=== PATIENT | male | born 1990 ===

== ENCOUNTER 2024-12-09 07:35 | Emergency (ER) | payer OTHER ==
[~2024-12-09] VITALS: Ht 175.3 cm; Wt 100.0 kg
--- NOTE | 2024-12-09 07:59 | ED.PDOC ---
GI ASSESSMENT HPI Comments 34-year-old male with PMHx Renal Stones presents with a chief complaint of abdominal pain x 0530 onset this morning with associated nausea and vomiting. Patient states that his pain is localized to his RLQ, nonradiating, describes as sharp, and rates his pain a 10/10. Patient reports that his pain began spontaneously and denies any injuries or trauma prior to onset of symptoms. Patient mentions that he has had kidney stones in the past, but this pain is worse than the kidney stone pain. Patient denies any blood in his emesis. Chief Complaint: Abdominal Pain Time Seen by MD: 07:54 Primary Care Provider: KAUR Zhang Notes: Medications, Allergies Allergies: Coded Allergies: NO KNOWN ALLERGIES (Unverified , 12/09/24) Information Source: Patient Mode of Arrival: Wheelchair Timing: Hours Duration: Since onset Prehospital treatment: None Quality: Sharp Vomitus: Bilious Stool: Normal Severity: Moderate Recent: None Recent Hx of: None Pain Location: RLQ Associated sign and symptoms: Nausea, Vomiting, Abdominal Pain Past Medical History PAST MEDICAL HISTORY: GERD, HTN, Kidney Stones Surgical History: Denies all surgeries Family History Family History: Reviewed,noncontributory to illness Social History Smoker: Non-Smoker Alcohol: Denies ETOH Use Drugs: Denies Drug Use Lives In: Home Constitutional: denies: chills, diaphoresis, fatigue, fever, malaise, sweats, weakness, others EENTM: denies: blurred vision, double vision, ear bleeding, ear discharge, ear drainage, ear pain, ear ringing, eye pain, eye redness, hearing loss, mouth pain, mouth swelling, nasal discharge, nose bleeding, nose congestion, nose pain, photophobia, tearing, throat pain, throat swelling, voice changes, others Respiratory: denies: cough, hemoptysis, orthopnea, SOB at rest, shortness of breath, SOB with excertion, stridor, wheezing, others Cardiovascular: denies: chest pain, dizzy spells, diaphoresis, Dyspnea on exertion, edema, irregular heart beat, left arm pain, lightheadedness, palpitations, PND, syncope, others Gastrointestinal: reports: abdominal pain, nausea, vomiting; denies: abdomen distended, blood streaked bowels, constipated, diarrhea, dysphagia, difficulty swallowing, hematemesis, melena, poor appetite, poor fluid intake, rectal bleeding, rectal pain, others Genitourinary: denies: burning, dysuria, flank pain, frequency, hematuria, i ncontinence, penile discharge, penile sore, pain, testicle pain, testicle swelling, urgency, others Neurological: denies: dizziness, fainting, headache, left sided numbness, left sided weakness, numbness, paresthesia, pre-existing deficit, right sided numbness, right sided weakness, seizure, speech problems, tingling, tremors, weakness, others Musculoskeletal: denies: back pain, gout, joint pain, joint swelling, muscle pain, muscle stiffness, neck pain, others Integumetry: denies: bruises, change in color, change in hair/nails, dryness, laceration, lesions, lumps, rash, wounds, others Allergic/Immunocompromised: denies: Difficulty Healing, Frequent Infections, Hives, Itching, others Hematologic/Lymphatic: denies: anemia, blood clots, easy bleeding, easy bruising, swollen glands, others Endocrine: denies: excessive hunger, excessive sweating, excessive thirst, excessive urination, flushing, intolerance to cold, intolerance to heat, unexplained weight gain, unexplained weight loss, others Psychiatric: denies: anxiety, bipolar disorder, depression, hopeless, panic disorder, schizophrenia, sleepless, suicidal, others All Other Systems: Reviewed and Negative Physical Exam General Appearance: Moderate Distress, Normal HEENT: Normal ENT Inspection, Pharynx Normal, TMs Normal Neck: Full Range of Motion, Non-Tender, Normal, Normal Inspection Respiratory: Chest Non-Tender, Lungs Clear, No Accessory Muscle Use, No Respiratory Distress, Normal Breath Sounds Cardiovascular: No Edema, No JVD, No Murmur, No Gallop, Normal Peripheral Pulses, Regular Rate/Rhythm Breast Exam: Deferred Gastrointestinal: No Organomegaly, No Pulsatile Mass, Normal Bowel Sounds, RLQ, Soft, Tenderness Genitalia: Deferred Pelvic: Deferred Rectal: Deferred Extremities: No calf tenderness, Normal capillary refill, Normal inspection, Normal range of motion, Non-tender, No pedal edema Musculoskeletal : Apperance: Normal Neurologic: Alert, furniture sander II-XII nml as Tested, No Motor Deficits, Normal Affect, Normal Mood, No Sensory Deficits Cerebellar Function: Normal Reflexes: Normal Skin: Dry, Normal Color, Warm Lymphatic: No Adenopathy Was a procedure done? Was a procedure done?: No GI differential Dx Differential Diagnosis: Gastroenteritis, UTI, Urolithiasis, Electrolyte Imbalance, Viral, Renal Failure, Kidney Stone X-Ray, Labs, Meds, VS Vital Signs Date Time Temp Pulse Resp B/P (MAP) Pulse Ox O2 Delivery O2 Flow Rate FiO2 12/09/24 10:40 100 16 125/77 12/09/24 10:07 87 20 161/100 12/09/24 10:00 86 17 161/100 (120) 96 12/09/24 08:01 93 24 145/84 12/09/24 08:00 93 24 97 Room Air* 0 21 12/09/24 08:00 97.9 93 24 145/84 (104) 97 97.9 12/09/24 07:45 97.8 109 16 154/92 (112) 98 Lab Test 12/09/24 08:10 Range/Units White Blood Count 11.1 H 4.4-10.8 10^3/uL Red Blood Count 5.26 4.5-5.90 10^6/uL Hemoglobin 16.9 13.5-17.5 g/dL Hematocrit 48.2 41.0-53.0 % Mean Corpuscular Volume 91.6 80.0-100.0 fL Mean Corpuscular Hemoglobin 32.2 H 28.0-32.0 pg Mean Corpuscular Hemoglobin Concent 35.1 32.0-36.0 g/dL Red Cell Distribution Width 13.9 11.8-14.3 % Platelet Count 333 140-450 10^3/uL Mean Platelet Volume 7.8 6.9-10.8 fL Neutrophils (%) (Auto) 47.8 37.0-80.0 % Lymphocytes (%) (Auto) 40.3 10.0-50.0 % Monocytes (%) (Auto) 10.7 0.0-12.0 % Eosinophils (%) (Auto) 0.6 0.0-7.0 % Basophils (%) (Auto) 0.6 0.0-2.0 % Neutrophils # (Auto) 5.3 1.6-8.6 10 ^3/uL Lymphocytes # (Auto) 4.5 0.4-5.4 10 ^3/uL Monocytes # (Auto) 1.2 0-1.3 10 ^3/uL Eosinophils # (Auto) 0.1 0-0.8 10 ^3/uL Basophils # (Auto) 0.1 0-0.2 10 ^3/uL Nucleated Red Blood Cells 0.0 % Sodium Level 140 136-145 mmol/L Potassium Level 3.8 3.5-5.1 mmol/L Chloride Level 109 H 98-107 mmol/L Carbon Dioxide Level 14 L 20-31 mmol/L Anion Gap 17 H 5-15 Blood Urea Nitrogen 6 L 9-23 mg/dL Creatinine 0.99 0.700-1.30 mg/dL Glomerular Filtration Rate Calc 102 >90 mL/min BUN/Creatinine Ratio 6.1 L 10.0-20.0 Serum Glucose 125 H 74-106 mg/dL Calcium Level 9.7 8.7-10.4 mg/dL Current Medications Medications (Trade) Dose Ordered Sig/Beth Route Start Time Stop Time Status Last Admin Sodium Chloride 1,000 ml @ 1,000 mls/hr Q1H ONCE IV 12/09/24 08:00 12/09/24 08:59 DC 12/09/24 08:00 Ondansetron HCl (Zofran) 4 mg ONCE ONCE IV 12/09/24 08:00 12/09/24 08:01 DC 12/09/24 08:00 Morphine Sulfate 4 mg ONCE ONCE IV 12/09/24 08:00 12/09/24 08:01 DC 12/09/24 08:01 Ketorolac Tromethamine (Toradol Injection) 15 mg ONCE ONCE IV 12/09/24 08:30 12/09/24 08:36 DC 12/09/24 08:38 Morphine Sulfate 4 mg ONCE ONCE IV 12/09/24 09:30 12/09/24 09:58 DC 12/09/24 10:07 Ondansetron HCl (Zofran) 4 mg ONCE ONCE IV 12/09/24 09:30 12/09/24 09:58 DC 12/09/24 10:08 Tamsulosin HCl (Flomax) 0.4 mg ONCE ONCE PO 12/09/24 09:45 12/09/24 09:46 DC 12/09/24 11:08 Time of 1ST Reevaluation: 08:24 Reevaluation 1ST: Unchanged Patient Education/Counseling: Diagnosis, Treatment, Prognosis Family Education/Counseling: Diagnosis, Treatment, Prognosis Departure 1 Departure Time of Disposition: 11:13 (Patient presented with abdominal pain that was concerning for possible appendicits, gastritis, cholecystitis, colitis, gastroenteritis, or orther possible surgical emergency. Data: 1. I ordered and reviewed the result of at least 3 labs including a CBC, BMP, and Urinalysis. 2. I independently interpreted the following tests: CT Abdoment and Pelvis is concerning for ureteral colic .Risk:This patient has a high risk of morbidity due to further diagnostic testing or treatment and may suffer from an acute abdominal process disorder. Fortunately workup reveals ureteral colic and patient can be safely discharged to home with outpatient follow up.) Impression: Primary Impression: Ureteral colic Disposition: HOME / SELF CARE / HOMELESS Condition: Stable Referrals: NEIL STAUFFER MD Additional Instructions: You have a kidney stone. You were prescribed flomax. Please take as directed. For pain you can take the followinam: Ibuprofen 400mg with food Noon: Acetaminophen 1000mg 4pm: Ibuprofen 400mg with food 8pm: Acetaminophen 1000mg You should follow up with your regular doctor or a urologist within one week to ensure you are doing better. If your symptoms worsen or you have any other concerns then please return to the ER. e-Prescriptions Tamsulosin Hcl (Flomax) 0.4 Mg Cap 1 CAP PO DAILY for 14 Days, #30 CAP 11 Refills Prov: TIRSO ANDRADE MD 12/09/24 Discharged With: Self Critical Care Note Critical Care Time?: No Stability Stability form required: No I personally scribed for TIRSO ANDRADE MD ([email or web address]) on 12/09/24 at 07:59. Electronically submitted by Emanuel Messina ([email or web address]). TIRSO ANDRADE MD Dec 09, 2024 07:59
[2024-12-09 08:00] VITALS: PULSE 93; RESP 24; TEMP 97.9; O2SAT 97
[2024-12-09] MEDS: ONDANSETRON HCL 4 MG/2 ML VIAL IV ONE ×2 (08:00→10:08)
[2024-12-09] MEDS: SODIUM CHLORIDE 0.9% 1,000 ML IV ONE (08:00)
[2024-12-09] MEDS: MORPHINE SULFATE 4 MG/ML SYR/VIAL IV ONE ×2 (08:01→10:07)
[2024-12-09] MEDS ORDERED: IOHEXOL 300 MG/ML 100ML BOTTLE IJ ONE (08:06)
[2024-12-09 08:30] LABS: Potassium 3.8 mmol/L (3.5-5.1); Sodium 140 mmol/L (136-145)
[2024-12-09 08:31] LABS: Anion Gap 17 (5-15)
[2024-12-09 08:32] LABS: Calcium 9.7 mg/dL (8.7-10.4)
[2024-12-09 08:34] LABS: Carbon Dioxide 14 mmol/L (20-31); Chloride 109 mmol/L (98-107)
[2024-12-09 08:36] LABS: Basophils # (auto) 0.1 10 ^3/uL (0-0.2); Basophils % (auto) 0.6 % (0.0-2.0); Eosinophils # (auto) 0.1 10 ^3/uL (0-0.8); Eosinophils % (auto) 0.6 % (0.0-7.0); Hematocrit 48.2 % (41.0-53.0); Hemoglobin 16.9 g/dL (13.5-17.5); Lymphocytes # (auto) 4.5 10 ^3/uL (0.4-5.4); Lymphocytes % (auto) 40.3 % (10.0-50.0); Mean Corpuscular Hemoglobin 32.2 pg (28.0-32.0); Mean Corpuscular Hgb Conc. 35.1 g/dL (32.0-36.0); Mean Corpuscular Volume 91.6 fL (80.0-100.0); Monocytes # (auto) 1.2 10 ^3/uL (0-1.3); Monocytes % (auto) 10.7 % (0.0-12.0); Neutrophils # (auto) 5.3 10 ^3/uL (1.6-8.6); Neutrophils % (auto) 47.8 % (37.0-80.0); Platelet Count (auto) 333 10^3/uL (140-450); Red Blood Cells 5.26 10^6/uL (4.5-5.90); Red Cell Distribution Width 13.9 % (11.8-14.3); White Blood Cell 11.1 10^3/uL (4.4-10.8)
[2024-12-09 08:37] LABS: BUN/Creatinine Ratio 6.1 (10.0-20.0)
[2024-12-09 08:38] LABS: Blood Urea Nitrogen 6 mg/dL (9-23); Glucose 125 mg/dL (74-106)
[2024-12-09] MEDS: KETOROLAC TROMETH 30 MG/ML 1ML VIAL IV ONE (08:38)
--- NOTE | 2024-12-09 09:33 | DVH ---
Exam: CT CT AB PEL WITH IV CON ONLY History: rlq pain COMPARISON: None Technique: Multidetector spiral CT of the abdomen and pelvis was performed from lung bases to pubic s ymphysis. Intravenous contrast was administered during this examination. Portal venous imaging was obtained. Axial, coronal and sagittal multiplanar reformats were performed by the technologist on a separate workstation. Radiation Dose : 1. Abdomen/Pelvis: CTDIvol 25 mGy, DLP 1687.36 mGy*cm. CONTRAST: Type of contrast: Omnipaque 300 Contrast injected: 100 ml Findings: Lung Bases: No acute or significant lung base finding. Normal heart size. No pleural or pericardial effusion. Liver: The liver is normal in size. No focal lesions. Normal hepatic vascular enhancement. Diffuse s teatosis. Gallbladder and Biliary Tree: Unremarkable Spleen: Unremarkable Pancreas: The pancreas is normal in appearance without focal lesions or abnormal enhancement. Adrenal Glands: Unremarkable Kidneys: 1 mm stone in the right UVJ is causing mild right-sided hydroureteronephrosis. Bladder: Unremarkable Bowel: The stomach is grossly normal in appearance. Small bowel and colon are normal in caliber and d istribution. Normal appendix is visualized in the right lower quadrant without findings of appendici tis. Ascites: Absent Lymphadenopathy: No mesenteric, retroperitoneal or periportal lymphadenopathy. Abdominal Wall and Mesentery: Unremarkable. Vasculature: The visualized abdominal aorta is normal in size and caliber. Abdominal and pelvic vess els demonstrate normal enhancement. Pelvic Organs: Unremarkable Musculoskeletal: No aggressive focal bony lesions, acute fractures or dislocation. IMPRESSION: 1. 1 mm stone in the right UVJ is causing mild right-sided hydroureteronephrosis. 2. Normal appendix. Radiation optimization: All CT scans at this facility use at least one of these dose optimization elvie hniques: automated exposure control mA and/or kV adjustment per patient size (includes targeted exam s where dose is matched to clinical indication) or iterative reconstruction.
[2024-12-09] MEDS: TAMSULOSIN HYDROCHLORIDE 0.4 MG CAP PO ONE (11:08)
[2024-12-09] MEDS ORDERED: TAMS-35 PO (11:18)
[2024-12-09 11:36] VITALS: BP 154/97; PULSE 90; RESP 15; O2SAT 96
== END 2024-12-09 11:39 | disposition home or self-care (01) ==
LOC: ER 07:35
DX: N13.2 Hydronephrosis with renal and ureteral calculous obstruction (principal); I10 Essential (primary) hypertension; K21.9 Gastro-esophageal reflux disease without esophagitis; Z87.442 Personal history of urinary calculi
CPT/HCPCS: 36415; 74177; 80048; 85025; 96361; 96374; 96375; 96376; 99285; J1885; J2270; J2405; J7030; Q9967

== ENCOUNTER 2025-07-03 13:49 | Emergency (ER) | payer OTHER ==
[~2025-07-03] VITALS: Ht 175.3 cm; Wt 93.0 kg
[~2025-07-03 13:49] MED LIST: TAMS-35 PO
[2025-07-03 14:55] LABS: Hematocrit 49.1 % (41.0-53.0); Hemoglobin 17.5 g/dL (13.5-17.5); Mean Corpuscular Hemoglobin 33.3 pg (28.0-32.0); Mean Corpuscular Volume 93.3 fL (80.0-100.0); Nucleated Red Blood Cells % 0.1 %
[2025-07-03 15:12] LABS: Alanine Aminotransferase 39 U/L (7-40); Albumin 4.4 g/dL (3.2-4.8); Alkaline Phosphatase 45 U/L (46-116); Anion Gap 9 (5-15); BUN/Creatinine Ratio 8.6 (10.0-20.0); Bilirubin, Total 1.9 mg/dL (0.2-1.0); Blood Urea Nitrogen 7 mg/dL (9-23); Calcium 9.7 mg/dL (8.7-10.4); Carbon Dioxide 27 mmol/L (20-31); Chloride 103 mmol/L (98-107); Glucose 85 mg/dL (74-106); Potassium 4.1 mmol/L (3.5-5.1); Sodium 139 mmol/L (136-145); Total Protein 7.4 g/dL (5.7-8.2)
[2025-07-03 15:35] LABS: Urine Budding Yeast FEW /hpf (None Seen); Urine Protein, UAD TRACE (Negative)
--- NOTE | 2025-07-03 15:58 | DVH ---
Exam: CT CT AB PEL WO CON-NO ORAL OR IV History: rlq pain Comparison Study: CT CT AB PEL WITH IV CON ONLY on DOS: 12/09/24 TECHNIQUE: Multidetector CT of the abdomen AND PELVIS without IV contrast. Axial, coronal and sagitt al multiplanar reformats were obtained from the axial data set by the technologist. Radiation Dose Information: CT Dose: CTDI volume is 16.36 mGy. Dose-length product is 188.18 mGy*cm FINDINGS: The lung bases are clear. Partially visualized heart is unremarkable. Mild hepatomegaly. Otherwise, liver, spleen, gallbladder, pancreas and adrenal glands unremarkable. 1.5 cm left renal upper pole cyst. Otherwise, the left kidneys is unremarkable. Mild right hydrourete ronephrosis with fat stranding adjacent to the right renal pelvis and ureter and no obstructing calcu [place] noted. 2 mm calculus within the right posterior urinary bladder which most likely represents a re cently passed calculus. The urinary bladder is otherwise unremarkable. Prostate is unremarkable. Stomach is unremarkable. Small bowel loops are unremarkable. Appendix is unremarkable. Mild wall thickening of the ascending c olon, transverse colon and rectum with minimal wall thickening of the remainder of the colon. Descen ding colon and Sigmoid diverticulosis with Minimal fat stranding adjacent to The sigmoid. No evidence of intraperitoneal free air or free fluid. No evidence of aortic aneurysm. No significant lymphadenopathy. Soft tissues unremarkable. Limited evaluation of the bony structures with No evidence of acute osseou s abnormalities. IMPRESSION: 2 mm calculus within the right posterior urinary bladder which most likely represents a recently pass ed calculus. Mild right hydroureteronephrosis with fat stranding adjacent to the right renal pelvis and ureter and no obstructing calculus noted. Finding may be associated with a recently passed calculus. Infectiou s process can not be excluded. Minimal/ mild pancolonic wall thickening. Correlate for mild colitis. Descending colon and Sigmoid diverticulosis with questionable minimal sigmoid diverticulitis.
[2025-07-03] MEDS ORDERED: TAMS-35 PO (17:34)
--- NOTE | 2025-07-03 17:40 | ED.PDOC ---
GI ASSESSMENT HPI Comments 35-year-old male with a history of kidney stones presents today to the ED for chief complaint right lower quadrant abdominal pain. Patient states that he has been having right lower quadrant abdominal pain radiating to the groin since 529 this a.m.. Patient states that he was having mild discomfort with associated nausea. Patient states he went to work and he went to use the restroom and states he noticed blood in urine. 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 While waiting in the ED he felt severe pain, then experienced relief as if he had possibly passed a kidney stone. Denies any other recent illness including fever, vomiting, diarrhea or constipation. Patient patient in the ED otherwise states that he had his noted to be taking Ozempic for weight loss. Chief Complaint: Abdominal Pain Time Seen by MD: 17:38 Primary Care Provider: KAUR Zhang Notes: Medications, Allergies Allergies: Coded Allergies: NO KNOWN ALLERGIES (Unverified , 12/09/24) Home Meds Active Scripts Hydrocodone-Acetaminophen (Hydrocodone Bitartrate/AC 5-325 mg) 1 Tab Tab, 1-2 TAB PO Q6HP PRN, #20 TAB Prn pain Prov:BRAD STEWARD MD 07/03/25 Metronidazole (Flagyl) 500 Mg Tab, 1 TAB PO TID for 10 Days, #30 TAB Prov:BRAD STEWARD MD 07/03/25 Amoxicillin & Pot Clavulanate (AUGMENTIN TABLET) 875 Mg Tb, 875 MG PO BID for 10 Days, #20 TAB Prov:BRAD STEWARD MD 07/03/25 Tamsulosin Hcl (Flomax) 0.4 Mg Cap, 1 CAP PO DAILY for 14 Days, #30 CAP 11 Refills Prov:BRAD STEWARD MD 07/03/25 Information Source: Patient Mode of Arrival: Ambulatory Past Medical History PAST MEDICAL HISTORY: HTN, Kidney Stones Past Medical History (Other): Gastritis Surgical History: Denies all surgeries Family History Family History (Other): mother-Diverticulitis Social History Smoker: Non-Smoker Alcohol: Denies ETOH Use Drugs: Denies Drug Use Lives In: Home All Other Systems: Reviewed and Negative (CHF) Physical Exam General Appearance: No Apparent Distress HEENT: Other (Pupils and face symmetric. Moist mucous membranes.) Neck: Full Range of Motion, Normal Inspection Respiratory: No Accessory Muscle Use, No Respiratory Distress Cardiovascular: No Edema, No JVD, Regular Rate/Rhythm Breast Exam: Deferred Gastrointestinal: RLQ (Mild), Soft, Tenderness Genitalia: Deferred Pelvic: Deferred Rectal: Deferred Extremities: Normal inspection, Normal range of motion, Non-tender, No pedal edema Neurologic: Alert (Oriented x4), Normal Affect, Normal Mood, Other (Ambulatory) Cerebellar Function: NOT DONE Reflexes: NOT DONE Skin: Dry, Normal Color, Warm Lymphatic: NOT DONE Was a procedure done? Was a procedure done?: No GI differential Dx Differential Diagnosis: Diverticular disease, Gastritis/PUD, Gastroenteritis, GI hemorrhage, Inflammatory BD, UTI, Urolithiasis, Food Poisoning, Bacterial, Viral, Kidney Stone Other Differential Diagnosis Colitis, enteritis X-Ray, Labs, Meds, VS Vital Signs Date Time Temp Pulse Resp B/P (MAP) Pulse Ox O2 Delivery O2 Flow Rate FiO2 07/03/25 19:00 97.9 88 21 141/89 (106) 98 97.9 07/03/25 19:00 88 18 98 Room Air* 0 21 07/03/25 13:50 97.8 79 14 167/105 99 97.8 Lab Test 07/03/25 15:20 07/03/25 14:42 Range/Units Urine Color Light-orange Yellow Urine Clarity Turbid H Clear Urine pH 5.5 5.0-9.0 Urine Specific Hoffman 1.021 1.001-1.035 Urine Protein Trace H Negative Urine Ketones 2+ H Negative Urine Blood 3+ H Negative /uL Urine Nitrite Negative Negative Urine Bilirubin Negative Negative Urine Urobilinogen Normal Negative mg/dL Urine Leukocyte Esterase Negative Negative /uL Urine RBC 203 0 - 3 /hpf Urine Microscopic WBC 2 0-3 /HPF Urine Squamous Epithelial Cells Few <5 /hpf Urine Bacteria Few H None Seen /hpf Urine Mucus Few None Seen Urine Yeast (Budding) Few None Seen /hpf Urine Glucose Normal Normal mg/dL White Blood Count 8.2 4.4-10.8 10^3/uL Red Blood Count 5.27 4.5-5.90 10^6/uL Hemoglobin 17.5 13.5-17.5 g/dL Hematocrit 49.1 41.0-53.0 % Mean Corpuscular Volume 93.3 80.0-100.0 fL Mean Corpuscular Hemoglobin 33.3 H 28.0-32.0 pg Mean Corpuscular Hemoglobin Concent 35.6 32.0-36.0 g/dL Red Cell Distribution Width 13.9 11.8-14.3 % Platelet Count 204 140-450 10^3/uL Mean Platelet Volume 7.5 6.9-10.8 fL Neutrophils (%) (Auto) 72.7 37.0-80.0 % Lymphocytes (%) (Auto) 17.3 10.0-50.0 % Monocytes (%) (Auto) 9.3 0.0-12.0 % Eosinophils (%) (Auto) 0.4 0.0-7.0 % Basophils (%) (Auto) 0.3 0.0-2.0 % Neutrophils # (Auto) 6.0 1.6-8.6 10 ^3/uL Lymphocytes # (Auto) 1.4 0.4-5.4 10 ^3/uL Monocytes # (Auto) 0.8 0-1.3 10 ^3/uL Eosinophils # (Auto) 0 0-0.8 10 ^3/uL Basophils # (Auto) 0 0-0.2 10 ^3/uL Nucleated Red Blood Cells 0.1 % Sodium Level 139 136-145 mmol/L Potassium Level 4.1 3.5-5.1 mmol/L Chloride Level 103 98-107 mmol/L Carbon Dioxide Level 27 20-31 mmol/L Anion Gap 9 5-15 Blood Urea Nitrogen 7 L 9-23 mg/dL Creatinine 0.81 0.700-1.30 mg/dL Glomerular Filtration Rate Calc 117 >90 mL/min BUN/Creatinine Ratio 8.6 L 10.0-20.0 Serum Glucose 85 74-106 mg/dL Calcium Level 9.7 8.7-10.4 mg/dL Total Bilirubin 1.9 H 0.2-1.0 mg/dL Aspartate Amino Transferase (AST) 27 13-40 U/L Alanine Aminotransferase (ALT) 39 7-40 U/L Alkaline Phosphatase 45 L 46-116 U/L Total Protein 7.4 5.7-8.2 g/dL Albumin 4.4 3.2-4.8 g/dL Current Medications Medications (Trade) Dose Ordered Sig/Beth Route Start Time Stop Time Status Last Admin Sodium Chloride 2,000 ml @ 1,000 mls/hr Q2H ONCE IV 07/03/25 17:30 07/03/25 19:23 DC 07/03/25 18:27 Ondansetron HCl (Zofran) 4 mg ONCE ONCE IV 07/03/25 17:30 07/03/25 17:31 DC 07/03/25 18:27 Ketorolac Tromethamine (Toradol Injection) 30 mg ONCE ONCE IV 07/03/25 17:30 07/03/25 17:31 DC 07/03/25 18:27 Tamsulosin HCl (Flomax) 0.4 mg ONCE ONCE PO 07/03/25 17:30 07/03/25 17:31 DC 07/03/25 18:27 Famotidine (Pepcid Injection) 20 mg ONCE ONCE IV 07/03/25 17:45 07/03/25 17:46 DC 07/03/25 18:27 [place] [id number] Ph: [phone] DIAGNOSTIC IMAGING Diagnostic Imaging Report : [id number] Signed PATIENT: DARIN HOLCOMB ACCT: [id number] UNIT: [id number] : 1990 LOC: ER ROOM / BED: / AGE / SEX: 35 / M ADM STATUS: REG ER SERVICE [id number] ORDERING PHYSICIAN: BRAD STEWARD MD PROCEDURE(s): ABPL - CT AB PEL WO CON-NO ORAL OR IV REASON: rlq pain ORDER NUMBER(s): [id number], ACCESSION NUMBER(s): [id number] Exam: CT CT AB PEL WO CON-NO ORAL OR IV History: rlq pain Comparison Study: CT CT AB PEL WITH IV CON ONLY on DOS: 12/09/24 TECHNIQUE: Multidetector CT of the abdomen AND PELVIS without IV contrast. Axial, coronal and sagittal multiplanar reformats were obtained from the axial data set by the technologist. Radiation Dose Information: CT Dose: CTDI volume is 16.36 mGy. Dose-length product is 188.18 mGy*cm FINDINGS: The lung bases are clear. Partially visualized heart is unremarkable. Mild hepatomegaly. Otherwise, liver, spleen, gallbladder, pancreas and adrenal glands unremarkable. 1.5 cm left renal upper pole cyst. Otherwise, the left kidneys is unremarkable. Mild right hydroureteronephrosis with fat stranding adjacent to the right renal pelvis and ureter and no obstructing calculus noted. 2 mm calculus within the ri ght posterior urinary bladder which most likely represents a recently passed calculus. The urinary bladder is otherwise unremarkable. Prostate is unremarkable. Stomach is unremarkable. Small bowel loops are unremarkable. Appendix is unremarkable. Mild wall thickening of the ascending colon, transverse colon and rectum with minimal wall thickening of the remainder of the colon. Descending colon and Sigmoid diverticulosis with Minimal fat stranding adjacent to The sigmoid. No evidence of intraperitoneal free air or free fluid. No evidence of aortic aneurysm. No significant lymphadenopathy. Soft tissues unremarkable. Limited evaluation of the bony structures with No evidence of acute osseous abnormalities. IMPRESSION: 2 mm calculus within the right posterior urinary bladder which most likely represents a recently passed calculus. Mild right hydroureteronephrosis with fat stranding adjacent to the right renal pelvis and ureter and no obstructing calculus noted. Finding may be associated with a recently passed calculus. Infectious process can not be excluded. Minimal/ mild pancolonic wall thickening. Correlate for mild colitis. Descending colon and Sigmoid diverticulosis with questionable minimal sigmoid diverticulitis. ATED BY: DESTINI DASILVA DO DICTATED DATE/TIME: 07/03/25 155 SIGNED BY: DESTINI DASILVA DO SIGNED DATE/TIME: 07/03/25 155 CC: X-Ray, Labs, Meds, VS Comment 35-year-old male with a history of hypertension, gastritis and kidney stones complaining of right lower quadrant pain radiating to the right groin Vitals remarkable for BP 167/105 Exam remarkable for right lower quadrant mild tenderness to palpation. Nontender to percussion. No rebound or guarding. Rhythm strip independently interpreted by me: Sinus rhythm, rate 89, no ectopy. CT abdomen and pelvis 2 mm calculus within the right posterior urinary bladder which most likely represents a recently passed calculus. Mild right hydroureteronephrosis with fat stranding adjacent to the right renal pelvis and ureter and no obstructing calculus noted. Finding may be associated with a recently passed calculus. Infectious process can not be excluded. Minimal/ mild pancolonic wall thickening. Correlate for mild colitis. Descending colon and Sigmoid diverticulosis with questionable minimal sigmoid diverticulitis. CBC and CMP unremarkable for any abnormality of acute significance, UA positive for protein, ketones, blood, RBCs and other abnormalities consistent with possible contaminated specimen Patient treated with the following in the ED: 2 L 0.9 normal saline IV bolus, Toradol 30 mg IV, Pepcid 20 mg IV, Flomax 0.4 mg p.o. On re-evaluation, patient stated pain had improved. Vitals were stable. Patient was advised regarding the CT findings. He not report any symptoms that were suspicious for colitis or diverticulitis. He stated he would prefer to take antibiotics if unnecessary. I will prescribe oral antibiotics to cover possible colitis/diverticulitis, pain medications and Flomax. Patient states he will follow-up with his primary physician in 1-2 days for re-evaluation. If symptomatic or concerned for colitis or diverticulitis, he will start the antibi otics tomorrow. Rx Augmentin, Flagyl, Tyler, Flomax Time of 1ST Reevaluation: 20:00 Reevaluation 1ST: Improved Patient Education/Counseling: Diagnosis, Treatment Family Education/Counseling: No Family Present SEPSIS Sepsis Screen Date sepsis recognized/suspect: Jul 03, 2025 Time Sepsis recognized/suspect: 1351 Recent Procedure: No On Antibiotic Therapy: No Respiratory Rate >20: No Heart Rate >90: No Temp<36 C (96.8 F) or >38.3 C: No SBP <90 or MAP <65 mmHG: No New Acute Mental Status Change: No Is the patient on CPAP, BIPAP,: No Physician Orders Ct Ab Pel Wo Con-No Oral Or Iv (07/03/25 14:34) Vital Signs Date Time Temp Pulse Resp B/P (MAP) Pulse Ox O2 Delivery O2 Flow Rate FiO2 07/03/25 19:00 97.9 88 21 141/89 (106) 98 97.9 07/03/25 19:00 88 18 98 Room Air* 0 21 07/03/25 13:50 97.8 79 14 167/105 99 97.8 Laboratory Tests Test 07/03/25 14:42 White Blood Count 8.2 10^3/uL (4.4-10.8) Medications Medications Dose Ordered Sig/Beth Route Start Time Stop Time Status Last Admin Dose Admin Famotidine 20 mg ONCE ONCE IV 07/03/25 17:45 07/03/25 17:46 DC 07/03/25 18:27 Ketorolac Tromethamine 30 mg ONCE ONCE IV 07/03/25 17:30 07/03/25 17:31 DC 07/03/25 18:27 Ondansetron HCl 4 mg ONCE ONCE IV 07/03/25 17:30 07/03/25 17:31 DC 07/03/25 18:27 Sodium Chloride 2,000 ml @ 1,000 mls/hr Q2H ONCE IV 07/03/25 17:30 07/03/25 19:23 DC 07/03/25 18:27 Tamsulosin HCl 0.4 mg ONCE ONCE PO 07/03/25 17:30 07/03/25 17:31 DC 07/03/25 18:27 Departure 1 Departure Time of Disposition: 17:46 Impression: Primary Impression: Ureteral colic Disposition: HOME / SELF CARE / HOMELESS Condition: Stable Additional Instructions: Your blood tests were unremarkable. Your urine test showed blood, consistent with passing a kidney stone. Your CT scan showed a 2 mm stone within the bladder, consistent with a recently passed stone. There were other findings that may indicate diverticulitis or colitis. I have enclosed the report below. I have prescribed pain medication, Flomax and antibiotics to cover possible diverticulitis or colitis. Follow-up with your primary doctor in 1-2 days. Return to ER for persistent or worsening symptoms. [place] [id number] Ph: [phone] DIAGNOSTIC IMAGING Diagnostic Imaging Report : [id number] Signed PATIENT: DARIN HOLCOMB ACCT: [id number] UNIT: [id number] : 1990 LOC: ER ROOM / BED: / AGE / SEX: 35 / M ADM STATUS: REG ER SERVICE [id number] ORDERING PHYSICIAN: BRAD STEWARD MD PROCEDURE(s): ABPL - CT AB PEL WO CON-NO ORAL OR IV REASON: rlq pain ORDER NUMBER(s): [id number], ACCESSION NUMBER(s): [id number] Exam: CT CT AB PEL WO CON-NO ORAL OR IV History: rlq pain Comparison Study: CT CT AB PEL WITH IV CON ONLY on DOS: 12/09/24 TECHNIQUE: Multidetector CT of the abdomen AND PELVIS without IV contrast. Axial, coronal and sagittal multiplanar reformats were obtained from the axial data set by the technologist. Radiation Dose Information: CT Dose: CTDI volume is 16.36 mGy. Dose-length product is 188.18 mGy*cm FINDINGS: The lung bases are clear. Partially visualized heart is unremarkable. Mild hepatomegaly. Otherwise, liver, spleen, gallbladder, pancreas and adrenal glands unremarkable. 1.5 cm left renal upper pole cyst. Otherwise, the left kidneys is unremarkable. Mild right hydroureteronephrosis with fat stranding adjacent to the right renal pelvis and ureter and no obstructing calculus noted. 2 mm calculus within the right posterior urinary bladder which most likely represents a recently passed calculus. The urinary bladder is otherwise unremarkable. Prostate is unremarkable. Stomach is unremarkable. Small bowel loops are unremarkable. Appendix is unremarkable. Mild wall thickening of the ascending colon, transverse colon and rectum with minimal wall thickening of the remainder of the colon. Descending colon and Sigmoid diverticulosis with Minimal fat stranding adjacent to The sigmoid. No evidence of intraperitoneal free air or free fluid. No evidence of aortic aneurysm. No significant lymphadenopathy. Soft tissues unremarkable. Limited evaluation of the bony structures with No evidence of acute osseous abnormalities. IMPRESSION: 2 mm calculus within the right posterior urinary bladder which most likely represents a recently passed calculus. Mild right hydroureteronephrosis with fat stranding adjacent to the right renal pelvis and ureter and no obstructing calculus noted. Finding may be associated with a recently passed calculus. Infectious process can not be excluded. Minimal/ mild pancolonic wall thickening. Correlate for mild colitis. Descending colon and Sigmoid diverticulosis with questionable minimal sigmoid diverticulitis. e-Prescriptions Hydrocodone-Acetaminophen (Hydrocodone Bitartrate/AC 5-325 mg) 1 Tab Tab 1-2 TAB PO Q6HP PRN, #20 TAB Prn pain Prov: BRAD STEWARD MD 07/03/25 Metronidazole (Flagyl) 500 Mg Tab 1 TAB PO TID for 10 Days, #30 TAB Prov: BRAD STEWARD MD 07/03/25 Amoxicillin & Pot Clavulanate (AUGMENTIN TABLET) 875 Mg Tb 875 MG PO BID for 10 Days, #20 TAB Prov: BRAD STEWARD MD 07/03/25 Tamsulosin Hcl (Flomax) 0.4 Mg Cap 1 CAP PO DAILY for 14 Days, #30 CAP 11 Refills Prov: BRAD STEWARD MD 07/03/25 Discharged With: Self Critical Care Note Critical Care Time?: No Stability Stability form required: No Heart Score Heart Score: Heart Score Response (Comments) Value History N/A 0 EKG N/A 0 Age N/A 0 Risk Factors N/A 0 Troponin N/A 0 Total 0 I personally scribed for BRAD STEWARD MD ([email or web address]) on 07/03/25 at 17:40. Electronically submitted by Leatha Lorenzana ([facility] BRAD STEWARD MD Jul 03, 2025 17:40
[2025-07-03] MEDS ORDERED: METR-344 PO (17:42)
[2025-07-03] MEDS ORDERED: HYDR-4902 PO (17:42)
[2025-07-03] MEDS ORDERED: AUG875T PO (17:42)
[2025-07-03] MEDS: KETOROLAC TROMETH 30 MG/ML 1ML VIAL IV ONE (18:27)
[2025-07-03] MEDS: SODIUM CHLORIDE 0.9% 2,000 ML IV ONE (18:27)
[2025-07-03] MEDS: ONDANSETRON HCL 4 MG/2 ML VIAL IV ONE (18:27)
[2025-07-03] MEDS: TAMSULOSIN HYDROCHLORIDE 0.4 MG CAP PO ONE (18:27)
[2025-07-03] MEDS: FAMOTIDINE (10MG/ML) 2ML VL IV ONE (18:27)
[2025-07-03 19:00] VITALS: BP 141/89; PULSE 88; RESP 18; TEMP 97.9; O2SAT 98
== END 2025-07-03 19:23 | disposition home or self-care (01) ==
LOC: ER 13:49
DX: N23 Unspecified renal colic (principal); I10 Essential (primary) hypertension; Z87.19 Personal history of other diseases of the digestive system; Z87.441 Personal history of nephrotic syndrome; Z87.442 Personal history of urinary calculi
CPT/HCPCS: 36415; 74176; 80053; 81001; 85025; 96361; 96374; 96375; 99285; J1885; J2405; J3490; J7030